=== PATIENT | male | born 1940 | race Caucasian/White ===

== ENCOUNTER 2022-06-23 20:10 | Inpatient (IN) | payer MEDICARE ==
[2022-06-23] MEDS ORDERED: Labetalol HCl 100 MG/20 ML VIAL ONE (20:46)
[2022-06-23] MEDS ORDERED: HUM PROTHROMBIN CPLX(PCC)4FACT 2,000 UNITS in Admixture Fee 1 EACH IV SCH (21:30)
[2022-06-23] MEDS ORDERED: Promethazine HCl 25 MG/ML VIAL IM PRN (21:34)
[2022-06-23] MEDS ORDERED: Dextrose 5% in Water 1,000 ML IV PRN (21:34)
[2022-06-23] MEDS ORDERED: Acetaminophen 325 MG TAB PO PRN (21:34)
[2022-06-23] MEDS ORDERED: TETANUS, DIPHTHERIA TOX,ADULT (TDVAX) 0.5 ML VIAL IM ONE (21:34)
[2022-06-23] MEDS ORDERED: Ondansetron PF 4 MG/2 ML Vial IVP PRN (21:34)
[2022-06-23] MEDS ORDERED: Ondansetron ODT 4 MG TAB PO PRN (21:34)
[2022-06-23] MEDS ORDERED: Dextrose 50% Abboject 50 ML SYRINGE SLOW IVP PRN (21:34)
[2022-06-23] MEDS ORDERED: Labetalol HCl 100 MG/20 ML VIAL SLOW IVP PRN (21:46)
[2022-06-23 22:35] LABS: SARS-CoV-2 NAA Rapid Test Not Detected (NotDetected)
[2022-06-23 23:52] VITALS: BMI 24.0
[2022-06-24 02:14] LABS: Bacteria/HPF None Seen HPF (None Seen); Bilirubin Negative (Negative); Blood, Urine Negative (Negative); CAUTI Indications for Culture Pelvic or flank pain; Clarity Clear (Clear); Glucose, Urine (Dipstick) Normal (Negative); Ketone, Urine Negative (Negative); Leukocyte Negative Leu/uL (Negative); Nitrite Negative (Negative); Protein, Urine (Dipstick) 50 mg/dL (Neg-Trace); RBC/HPF None Seen HPF (0-3); Squamous Epithelial None Seen HPF (0-3); Urobilinogen Normal mg/dL (Less than 2); WBC/HPF None Seen HPF (0-3); pH, Urine 5.5 (5.0-9.0)
[2022-06-24 02:17] LABS: Urine Culture Reflex No No
[2022-06-24 04:15] LABS: #Eosinphils 0.2 thou/uL (0.0-0.7); #Lymphocytes 1.5 thou/uL (1.20-3.40); #Monocytes 0.8 thou/uL (0.11-0.59); #Neutrophils 6.6 thou/uL (1.40-6.50); %Basophils 0.3 % (0.0-1.0); %Eosinophils 1.7 % (0.0-10.0); %Lymphocytes 16.5 % (21.0-51.0); %Monocytes 8.3 % (0.0-10.0); %Neutrophils 73.2 % (42.0-75.0); Hemoglobin 7.9 g/dL (14.0-18.0); Mean Corpuscular HGB CONC 33.3 g/dL (32.0-36.0); Mean Corpuscular Hemoglobin 29.7 pg (27.0-31.0); Mean Corpuscular Volume 89.2 fl (78.0-98.0); Mean Platelet Volume 7.3 fL (7.4-10.4); Platelet Count 237 10x3/uL (130-400); RBC Distribution Width 18.4 % (11.5-14.5); Red Blood Cell (RBC) Count 2.66 mill/uL (4.70-6.10)
[2022-06-24 04:21] LABS: INR-International Normal Ratio 1.3; Prothrombin Time 16.9 sec (12.0-14.7)
[2022-06-24 04:33] LABS: Anion Gap 15 mmol/L (10-20); BUN (Urea Nitrogen) 45 mg/dL (8.4-25.7); Calc. Creatinine Clearance 28 mL/min (70-130); Carbon Dioxide 20 mmol/L (23-31); Chloride 108 mmol/L (98-107); Estimated GFR 31; Glucose 82 mg/dL (83-110); Magnesium 1.8 mg/dL (1.6-2.6); Phosphorus 3.7 mg/dL (2.3-4.7); Potassium 3.4 mmol/L (3.5-5.1); Sodium 140 mmol/L (136-145)
[2022-06-24 04:36] LABS: Calcium 6.4 mg/dL (7.8-10.44)
[2022-06-24] MEDS ORDERED: Calcium Chloride 1 GM/10 ML Abboject SYRINGE IVP SCH (05:00)
[2022-06-24] MEDS ORDERED: Magnesium 2 GM/50 ML(in water) 1 GM in Premix Bag 1 BAG IVPB SCH (05:00)
[2022-06-24] MEDS ORDERED: Potassium Phosphate 12 MMOL in Sodium Chloride 0.9% 100 ML IVPB SCH (05:30)
[2022-06-24] MEDS: Famotidine 20 MG TAB PO SCH (08:28)
[2022-06-24] MEDS ORDERED: Amlodipine 5 MG TAB PO SCH (09:00)
[2022-06-24] MEDS: hydrALAZINE 25 MG TAB PO SCH ×2 (16:27→20:28)
[2022-06-24] MEDS: Carvedilol 6.25 MG TAB PO SCH (20:28)
[2022-06-25] MEDS: hydrALAZINE 20 MG/ML VIAL SLOW IVP PRN (06:32)
[2022-06-25] MEDS: hydrALAZINE 25 MG TAB PO SCH ×3 (07:54→21:03)
[2022-06-25] MEDS: Carvedilol 6.25 MG TAB PO SCH (07:55)
[2022-06-25] MEDS: Amlodipine 5 MG TAB PO SCH (07:55)
[2022-06-25] MEDS: Calcitriol 0.25 MCG CAP PO SCH (07:56)
[2022-06-25] MEDS: Famotidine 20 MG TAB PO SCH (07:56)
[2022-06-25] MEDS: Carvedilol 25 MG TAB PO SCH ×2 (09:14→21:04)
[2022-06-25] MEDS ORDERED: Calcium Chloride 13.6 MEQ in Sodium Chloride 0.9% 100 ML IVPB SCH (14:00)
[2022-06-26 06:17] LABS: Hemoglobin 8.1 g/dL (14.0-18.0); Mean Corpuscular Hemoglobin 29.1 pg (27.0-31.0); Mean Corpuscular Volume 88.3 fl (78.0-98.0); Platelet Count 215 10x3/uL (130-400); RBC Distribution Width 18.3 % (11.5-14.5); Red Blood Cell (RBC) Count 2.77 mill/uL (4.70-6.10); White Blood Cell (WBC) Count 7.5 10x3/uL (4.8-10.8)
[2022-06-26 06:18] LABS: #Eosinphils 0.1 thou/uL (0.0-0.7); #Lymphocytes 1.3 thou/uL (1.20-3.40); #Monocytes 0.5 thou/uL (0.11-0.59); #Neutrophils 5.5 thou/uL (1.40-6.50); %Basophils 0.4 % (0.0-1.0); %Eosinophils 1.3 % (0.0-10.0); %Lymphocytes 17.4 % (21.0-51.0); %Monocytes 7.1 % (0.0-10.0); %Neutrophils 73.9 % (42.0-75.0); Mean Platelet Volume 7.5 fL (7.4-10.4)
[2022-06-26 06:38] LABS: Anion Gap 15 mmol/L (10-20); BUN (Urea Nitrogen) 36 mg/dL (8.4-25.7); Calc. Creatinine Clearance 28 mL/min (70-130); Carbon Dioxide 18 mmol/L (23-31); Chloride 108 mmol/L (98-107); Estimated GFR 31; Glucose 96 mg/dL (83-110); Potassium 3.8 mmol/L (3.5-5.1); Sodium 137 mmol/L (136-145)
[2022-06-26] MEDS: hydrALAZINE 25 MG TAB PO SCH ×2 (08:54→16:04)
[2022-06-26] MEDS: Calcitriol 0.25 MCG CAP PO SCH (08:55)
[2022-06-26] MEDS: Famotidine 20 MG TAB PO SCH (08:55)
[2022-06-26] MEDS: Carvedilol 25 MG TAB PO SCH (08:55)
[2022-06-26] MEDS: Amlodipine 5 MG TAB PO SCH (08:55)
[2022-06-26 10:14] LABS: % Free PSA Greater than 6.6 % (.)
[2022-06-26 11:27] VITALS: TEMP 97.5
[2022-06-26] MEDS: hydrALAZINE 20 MG/ML VIAL SLOW IVP PRN (11:34)
[2022-06-26 16:05] VITALS: BP 148/67
== END 2022-06-26 17:15 | disposition home or self-care (01) | DRG 83 ==
LOC: ERS 20:10 → IMCU/EMU 20:47 → SURG A 06-24 22:04
PROVIDERS: ADMIT Student in an Organized Health Care Education/Training Program; ATTEND Student in an Organized Health Care Education/Training Program
DX: S06.5XAA Traumatic subdural hemorrhage with loss of consciousness status unknown, initial encounter (principal); C64.9 Malignant neoplasm of unspecified kidney, except renal pelvis; C79.51 Secondary malignant neoplasm of bone; I50.22 Chronic systolic (congestive) heart failure; I13.0 Hypertensive heart and chronic kidney disease with heart failure and stage 1 through stage 4 chronic kidney disease, or unspecified chronic kidney disease; Z66 Do not resuscitate; Z20.822 Contact with and (suspected) exposure to COVID-19; I48.91 Unspecified atrial fibrillation; N18.9 Chronic kidney disease, unspecified; D63.1 Anemia in chronic kidney disease; R40.2362 Coma scale, best motor response, obeys commands, at arrival to emergency department; R40.2142 Coma scale, eyes open, spontaneous, at arrival to emergency department; R40.2252 Coma scale, best verbal response, oriented, at arrival to emergency department; E83.51 Hypocalcemia; Z79.01 Long term (current) use of anticoagulants; Z90.5 Acquired absence of kidney
CPT/HCPCS: 36415; 70450; 71045; 74176; 80048; 81001; 82040; 83735; 84100; 84153; 84154; 84484; 85025; 85610; 85730; 93306; 93880; 96374; 96375; 96376; G0103; G0390; J0360; J2405; J3475; J3490; J7168